=== PATIENT | female | born 1985 ===

== ENCOUNTER 2019-01-29 19:20 | Emergency (ER) | payer OTHER ==
[2019-01-29 19:25] VITALS: RESP 16; TEMP 98.1
--- NOTE | 2019-01-29 21:03 | ED PDOC ---
HPI: General Adult Time Seen by Provider: 01/29/19 19:58 Chief Complaint (Nursing): Weakness/Neurological Deficit Chief Complaint (Provider): Right-sided Facial Numbness and Droop History Per: Patient History/Exam Limitations: no limitations Onset/Duration Of Symptoms: Days (x2) Additional Complaint(s): 33 year old female presents to ED with left sided facial numbness and droop x2 days. Patient denies headache, loss of vision, any weakness, nausea or vomiting. She complains of intermittent pain to calves bilaterally for last year but received a negative US for DVT. Patient reports no other symptoms. PMD: Dao Dillard Past Medical History Reviewed: Historical Data, Nursing Documentation, Vital Signs Vital Signs: Last Vital Signs Temp 98.1 F 01/29/19 19:24 Pulse 72 01/29/19 19:24 Resp 16 01/29/19 19:24 BP 143/98 H 01/29/19 19:24 Pulse Ox 97 01/29/19 19:24 Primary Care Provider: Dao Dillard - Medical History PMH: Back Problems - Surgical History Surgical History: - Family History Family History: States: Unknown Family Hx - Social History Current smoker - smoking cessation education provided: No Alcohol: Occasional Drugs: Denies - Immunization History Hx Tetanus Toxoid Vaccination: No Hx Influenza Vaccination: No Hx Pneumococcal Vaccination: No - Home Medications Home Medications: Ambulatory Orders Medication Instructions Recorded Ibuprofen [Motrin] 400 mg PO Q6 #20 tab 07/04/16 Ibuprofen [Motrin] 600 mg PO Q6 PRN #20 tab 10/25/18 Oseltamivir Phosphate [Tamiflu] 75 mg PO BID #10 capsule 10/25/18 Dextran 70/Hypromellose 15 ml OP Q1 #1 bottle 01/29/19 [Artificial Tears Eye Drops] Prednisone [Deltasone] 80 mg PO DAILY #28 tablet 01/29/19 valACYclovir [Valtrex] 1,000 mg PO TID #21 tab 01/29/19 - Allergies Allergies/Adverse Reactions: Allergies Allergy/AdvReac Type Severity Reaction Status Date / Time No Known Allergies Allergy Verified 10/25/18 10:05 Review of Systems ROS Statement: Except As Marked, All Systems Reviewed And Found Negative Constitutional: Negative for: Weakness Eyes: Negative for: Vision Change Gastrointestinal: Negative for: Nausea, Vomiting Musculoskeletal: Positive for: Other (bilateral calf pain) Neurological: Positive for: Other (left sided facial numbness and droop). Negative for: Headache Physical Exam - Reviewed Nursing Documentation Reviewed: Yes Vital Signs Reviewed: Yes - Physical Exam Appears: Positive for: No Acute Distress Head Exam: Positive for: ATRAUMATIC, NORMOCEPHALIC Skin: Positive for: Normal Color, Warm, Dry Eye Exam: Positive for: Normal appearance, EOMI, PERRL ENT: Positive for: Normal ENT Inspection Neck: Positive for: Normal, Supple Cardiovascular/Chest: Positive for: Regular Rate, Rhythm. Negative for: Murmur Respiratory: Positive for: Normal Breath Sounds. Negative for: Respiratory Distress Gastrointestinal/Abdominal: Positive for: Normal Exam, Soft. Negative for: Tenderness Back: Positive for: Normal Inspection. Negative for: L CVA Tenderness, R CVA Tenderness, Vertebral Tenderness Extremity: Positive for: Normal ROM. Negative for: Pedal Edema, Deformity Neurological/Psych: Positive for: Symmetric/Intact Strength (upper and lower body), Facial Droop (left sided), Other (decreased movement with left sided smile, decreased strength on closing eyes tightly, mild decrease of eyebrow raise, subjective decrease in sensation to left upper face, symmetric/intact movement upper and lower body) - Laboratory Results Result Diagrams: 01/29/19 20:37 01/29/19 20:37 - ECG O2 Sat by Pulse Oximetry: 97 (RA) Pulse Ox Interpretation: Normal Medical Decision Making Medical Decision Making: Time: 2047 Initial Impression: left sided facial droop and numbness to upper and lower face, 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 No mass lesion. No CT evidence for acute territorial infarct. No midline shift or extra-axial collections. VENTRICLES: No hydrocephalus. ORBITS: The orbits are unremarkable. SINUSES AND MASTOIDS: The paranasal sinuses and mastoid air cells are clear. BONES: No fracture. SOFT TISSUES: Unremarkable. IMPRESSION: No acute intracranial abnormality. 2203 CT and labs were unremarkable although dimer was elevated so obtain US and reassess 2215 Patient started on treatment of steroids, eye drops, and antiviral for Márquez's Palsy. 2299 Patient signed out by me to Juan Chisholm MD pending US lower extremities and reevaluation. Scribe Attestation: Documented by Mauricio Arias acting as a scribe for Ira High MD. Provider Scribe Attestation: All medical record entries made by the Scribe were at my direction and personally dictated by me. I have reviewed the chart and agree that the record accurately reflects my personal performance of the history, physical exam, medical decision making, and the department course for this patient. I have also personally directed, reviewed, and agree with the discharge instructions and disposition. Scribe Attestation: Documented by Ira Hunt, acting as a scribe for Ira High MD. Provider Scribe Attestation: All medical record entries made by the Scribe were at my direction and personally dictated by me. I have reviewed the chart and agree that the record accurately reflects my personal performance of the history, physical exam, medical decision making, and the department course for this patient. I have also personally directed, reviewed, and agree with the discharge instructions and disposition. Disposition - Clinical Impression Clinical Impression: Márquez's palsy - Disposition Referrals: [facility] [Outside] Disposition: Transfer of Care Disposition Time: 23:00 Condition: IMPROVED Additional Instructions: Take Prednisone and Acyclovir as prescribed. Apply eyedrops every hour while awake and cover eye with eye patch while sleeping. Follow up with eye doctor in 3 to 5 days. Follow up with primary medical doctor in one week. Return to the emergency department if symptoms worsen or if symptoms develop. Prescriptions: Dextran 70/Hypromellose [Artificial Tears Eye Drops] 15 ml OP Q1 #1 bottle Prednisone [Deltasone] 80 mg PO DAILY #28 tablet valACYclovir [Valtrex] 1,000 mg PO TID #21 tab Instructions: Márquez's Palsy (DC) Forms: [facility] (Irish), [facility] ED School/Work Excuse Print Language: COMORAN
[2019-01-29 21:18] LABS: BASO % 0.4 % (0.0-2.0); EOS # 0.1 K/uL (0.0-0.7); EOS % 1.8 % (0.0-4.0); HEMOGLOBIN 13.3 g/dL (12.0-16.0); LYMPH # 2.1 K/uL (1.0-4.3); LYMPH % 25.7 % (20.0-40.0); MEAN CELL VOLUME 90.9 fl (81.0-99.0); MEAN CORPUSCULAR HEMOGLOBIN 30.5 pg (27.0-31.0); MEAN CORPUSCULAR HGB CONC 33.6 g/dL (33.0-37.0); MEAN PLATELET VOLUME 7.3 fl (7.2-11.7); MONO # 0.4 K/uL (0.0-0.8); MONO % 5.2 % (0.0-10.0); NEUT # 5.4 K/uL (1.8-7.0); NEUT % 66.9 % (50.0-75.0); NRBC % 0.1 % (0.0-0.0); RBC 4.35 Mil/uL (3.80-5.20); RED CELL DISTRIBUTION WIDTH 12.7 % (11.5-14.5); WHITE BLOOD COUNT 8.1 K/uL (4.8-10.8)
[2019-01-29 21:24] LABS: BLOOD UREA NITROGEN 12 mg/dl (7-17); CALCIUM 9.8 mg/dL (8.4-10.2); GFR NON-AFRICAN AMERICAN > 60
[2019-01-29] MEDS ORDERED: Artificial Tears Opht Soln OU STA (22:15)
--- NOTE | 2019-01-29 23:11 | ED PDOC ---
- Laboratory Results Result Diagrams: 01/29/19 20:37 01/29/19 20:37 Lab Results: D-Dimer, Quantitative 434 ng/mlDDU (0-230) H 01/29/19 20:37 - ECG O2 Sat by Pulse Oximetry: 97 (RA) Medical Decision Making Medical Decision Makin:00 Patient signed out to me by Ira High MD pending US lower extremities and reevaluation. 00:06 US read and reviewed by radiologist FINDINGS: DEEP VEINS: The common femoral, superficial femoral, and popliteal veins are echolucent and compressible. There is normal color Doppler flow throughout. The visualized calf veins appear patent. SUPERFICIAL VEINS: The visualized greater saphenous vein is patent. SOFT TISSUES: No popliteal fossa cyst or other abnormalities. Incidental note is made of some bilateral non-enlarged inguinal lymph nodes. IMPRESSION: No deep venous thrombosis evident on bilateral lower extremity examination. 00:15 Upon provider reevaluation patient is medically stable, and requires no further treatment in the ED at this time. Patient will be discharged home with Rx for artificial tears eye drops, deltasone, and valtrex. Counseling was provided and all questions were answered regarding diagnosis. There is agreement to discharge plan. Return if symptoms persist or worsen. Scribe Attestation: Documented by Ira Hunt, acting as a scribe for Juan Chisholm MD. Provider Scribe Attestation: All medical record entries made by the Scribe were at my direction and personally dictated by me. I have reviewed the chart and agree that the record accurately reflects my personal performance of the history, physical exam, medical decision making, and the department course for this patient. I have also personally directed, reviewed, and agree with the discharge instructions and disposition. Disposition - Clinical Impression Clinical Impression: Márquez's palsy - POA Present On Arrival: None - Disposition Referrals: [facility] [Outside] Disposition: Routine/Home Disposition Time: 00:15 Condition: IMPROVED Additional Instructions: Take Prednisone and Acyclovir as prescribed. Apply eyedrops every hour while awake and cover eye with eye patch while sleeping. Follow up with eye doctor in 3 to 5 days. Follow up with primary medical doctor in one week. Return to the emergency department if symptoms worsen or if symptoms develop. Prescriptions: Dextran 70/Hypromellose [Artificial Tears Eye Drops] 15 ml OP Q1 #1 bottle Prednisone [Deltasone] 80 mg PO DAILY #28 tablet valACYclovir [Valtrex] 1,000 mg PO TID #21 tab Instructions: Márquez's Palsy (DC) Forms: [employer] ([place]), [facility] ED School/Work Excuse Print Language: NEPALI
[2019-01-30 00:39] VITALS: BP 139/85; PULSE 70
[2019-01-30 03:48] VITALS: O2SAT 97
--- NOTE | 2019-01-30 10:02 | CT ---
Date of service: 01/29/2019 PROCEDURE: CT HEAD WITHOUT CONTRAST. HISTORY: right sided facial droop COMPARISON: None available. TECHNIQUE: Axial computed tomography images were obtained through the head/brain without intravenous contrast. Radiation dose: Total exam DLP = 708.48 mGy-cm. This CT exam was performed using one or more of the following dose reduction techniques: Automated exposure control, adjustment of the mA and/or kV according to patient size, and/or use of iterative reconstruction technique. FINDINGS: HEMORRHAGE: No intracranial hemorrhage. BRAIN: No mass effect or edema. No atrophy or chronic microvascular ischemic changes. VENTRICLES: Unremarkable. No hydrocephalus. CALVARIUM: Unremarkable. PARANASAL SINUSES: Unremarkable as visualized. No significant inflammatory changes. MASTOID AIR CELLS: Unremarkable as visualized. No inflammatory changes. OTHER FINDINGS: None. IMPRESSION: Normal CT of the Head. Concordant results (preliminary interpretation) provided by [facility].
--- NOTE | 2019-01-30 10:53 | US ---
Date of service: 01/29/2019 PROCEDURE: Bilateral lower extremity venous duplex Doppler. HISTORY: elevated D-dimer. Bilateral leg swelling COMPARISON: None available. TECHNIQUE: Bilateral common femoral, superficial femoral, popliteal and posterior tibial veins were evaluated. Flow was assessed with color Doppler, compressibility, assessment of phasic flow and augmentation response. FINDINGS: COMMON FEMORAL VEIN: Right CFV: Unremarkable. Left CFV: Unremarkable. SUPERFICIAL FEMORAL VEIN: Right SFV: Unremarkable. Left SFV: Unremarkable. POPLITEAL VEIN: Right Popliteal: Unremarkable. Left Popliteal: Unremarkable. POSTERIOR TIBIAL VEIN: Right PTV: Unremarkable. Left PTV: Unremarkable. OTHER FINDINGS: There are bilateral prominent inguinal lymph nodes, nonspecific. Clinical follow-up is advised. IMPRESSION: No evidence of deep venous thrombosis. A preliminary report was provided by [facility].
== END 2019-01-30 00:31 | disposition home or self-care (01) ==
LOC: H.ER 19:20
DX: G51.0 Bell's palsy (principal)